=== PATIENT | female | born 2000 | race Hispanic/Latino ===

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

== ENCOUNTER 2020-01-16 08:44 | Emergency (ER) | payer BC, OTHER ==
[2020-01-16] MEDS ORDERED: Acetaminophen 500 MG TAB ONE (08:51)
[2020-01-16] MEDS ORDERED: Acetaminophen 325 MG TAB ONE (08:51)
[2020-01-16] MEDS ORDERED: Ondansetron ODT 4 MG TAB ONE (09:40)
[2020-01-16] MEDS ORDERED: Ondansetron ODT 8 MG TAB ONE (09:43)
[2020-01-17 11:53] LABS: SARS-CoV-2 MS2 Positive; SARS-CoV-2 N Gene Negative; SARS-CoV-2 S Gene Negative; SARS-CoV-2 orf1ab Negative
== END 2020-01-16 10:00 | disposition home or self-care (01) ==
LOC: ERS 08:44
DX: B34.9 Viral infection, unspecified (principal); Z20.828 Contact with and (suspected) exposure to other viral communicable diseases
CPT/HCPCS: 87635; 87804; 99284; Q0162; U0003